=== PATIENT | female | born 2000 | race Two or more races ===

== ENCOUNTER 2022-05-17 17:43 | Emergency (ER) | payer MEDICAID, OTHER ==
[~2022-05-17] VITALS: Ht 162.6 cm; Wt 54.4 kg
[2022-05-17 18:08] VITALS: BP 118/80
== END 2022-05-17 21:15 | disposition left against medical advice (07) ==
LOC: ER 17:43
DX: R22.0 Localized swelling, mass and lump, head (principal); Z53.21 Procedure and treatment not carried out due to patient leaving prior to being seen by health care provider

== ENCOUNTER 2022-08-24 23:35 | Emergency (ER) | payer MEDICAID | END 2022-08-25 00:48 | disposition left against medical advice (07) | LOC: ER 23:35 | DX: N64.4 Mastodynia (principal); Z53.21 Procedure and treatment not carried out due to patient leaving prior to being seen by health care provider ==